=== PATIENT | male | born 1960 | race Caucasian/White ===

== ENCOUNTER 2018-11-29 10:50 | Outpatient (CLI) ==
--- NOTE | 2018-11-29 11:42 | DI ---
EXAM: Sinus series three views HISTORY: Chronic sinusitis. FINDINGS: The visualized paranasal sinuses appear grossly clear with no air-fluid levels or obvious opacification/mucosal thickening. Nasal septum is grossly midline. IMPRESSION: 1. Paranasal sinuses appear clear radiographically.
== END 2018-11-29 10:51 | disposition home or self-care (01) ==
LOC: RAD 10:50
PROVIDERS: ATTEND Internal Medicine
DX: J32.9 Chronic sinusitis, unspecified (principal)